=== PATIENT | male | born 1945 | race Caucasian/White ===

== ENCOUNTER 2017-09-25 10:05 | Emergency (ER) | payer MEDICARE, OTHER ==
[~2017-09-25] VITALS: Ht 177.8 cm; Wt 83.9 kg
[~2017-09-25 10:05] MED LIST: ACYCLOVIR 200200 MG PO; ACYCLOVIR 800800 MG PO; ADULT LOW DOSE81 MG PO; AEROCHAMBER PL1 EACH MC; ALLOPURINOL 30300 M1 PO; ALLOPURINOL PO; ARICEPT 5 MG TAB5 MG PO; ATORVASTATIN CA40 MG PO; CARVEDILOL12.5 MG; CLONAZEPAM 1 MG1 M1 PO; COREG6.25 MG PO; CRESTOR PO; CRESTOR5 MG; CYCLOBENZAPRINE10 MG; DESYREL50 MG; DESYREL50 MG PO; FEXOFENADINE H180 MG; FLOMAX0.4 MG PO; FLUOXETINE HCL40 MG PO; GLUCOPHAGE XR500 MG PO; GLUCOTROL5 MG PO; HYDROCODON-ACE1 EAC1 PO; HYDROCODONE; HYTRIN PO; INDOMETHACIN 5050 M1 PO; KEFLEX500 MG PO; LASIX 20 MG TAB20 MG PO; LISINOPRIL PO; LISINOPRIL40 MG; LORTAB 7.5/5001 TA3 PO; NEURONTIN600 MG PO; NORCO 5-325 TA1 EACH PO; OXYCODONE HCL 55 MG PO; PERCOCET 7.5-51 EACH PO; PREDNISONE 10 M10 MG PO; PREDNISONE 20 M20 MG PO; PROAIR HFA8.5 GM INH; PROZAC PO; ROBITUSSIN100 MG/53; SIMVASTATIN20 MG PO; TERAZOSIN; VENTOLIN HFA 1818 GM INH; ZPAK PO
[2017-09-25 10:46] LABS: ABSOLUTE BASOPHILS 0.1 thou/uL (0.0-0.2); ABSOLUTE EOSINOPHILS 0.2 thou/uL (0.0-0.7); ABSOLUTE LYMPHOCYTES 2.8 thou/uL (0.8-5.3); ABSOLUTE MONOCYTES 0.6 thou/uL (0.0-1.2); ABSOLUTE NEUTROPHILS 5.4 thou/uL (1.6-8.1); BASOPHILS 0.6 %; EOSINOPHILS 2.1 %; HEMATOCRIT 39.6 % (42.0-52.0); HEMOGLOBIN 13.2 gm/dL (14.0-18.0); LYMPHOCYTES 30.7 %; MCH 29.7 pg (26.0-34.0); MCHC 33.4 g/dL (28.0-37.0); MCV 88.9 fL (80.0-100.0); MONOCYTES 6.8 %; NUCLEATED RBCS 0 /100WBC; PLATELET COUNT* 340 thou/uL (150-400); POLYS 59.8 %; RBC 4.46 mil/uL (4.50-6.00); RDW-CV 14.1 % (10.5-14.5)
[2017-09-25 10:55] LABS: CALCIUM 8.8 mg/dL (8.5-10.1); CREATININE 0.8 mg/dL (0.6-1.3); POTASSIUM 3.5 mmol/L (3.5-5.1)
[2017-09-25 11:00] LABS: ALBUMIN 3.7 g/dL (3.4-5.0); TOTAL BILIRUBIN 0.5 mg/dL (<0.1-1.0); TOTAL PROTEIN 6.8 g/dL (6.4-8.2)
[2017-09-25] MEDS ORDERED: COLACE100 MG PO (11:57)
[2017-09-25 12:05] VITALS: BP 148/72
== END 2017-09-25 12:06 | disposition home or self-care (01) ==
LOC: M.ERS 10:05
PROVIDERS: Nurse Practitioner Family
DX: R10.9 Unspecified abdominal pain (principal); R11.0 Nausea; R14.0 Abdominal distension (gaseous); I10 Essential (primary) hypertension; E78.00 Pure hypercholesterolemia, unspecified; M19.90 Unspecified osteoarthritis, unspecified site; F10.99 Alcohol use, unspecified with unspecified alcohol-induced disorder; E11.9 Type 2 diabetes mellitus without complications; M54.30 Sciatica, unspecified side; Z87.891 Personal history of nicotine dependence; Z95.5 Presence of coronary angioplasty implant and graft

== ENCOUNTER 2017-09-27 09:39 | Emergency (ER) | payer MEDICARE, OTHER ==
[~2017-09-27] VITALS: Ht 177.8 cm; Wt 86.2 kg
[~2017-09-27 09:39] MED LIST changes: +COLACE100 MG PO
[2017-09-27 10:56] VITALS: BP 144/71
== END 2017-09-27 10:56 | disposition home or self-care (01) ==
LOC: M.ERS 09:39
DX: K59.00 Constipation, unspecified (principal); E78.00 Pure hypercholesterolemia, unspecified; M19.90 Unspecified osteoarthritis, unspecified site; Z95.5 Presence of coronary angioplasty implant and graft; Z87.891 Personal history of nicotine dependence

== ENCOUNTER 2018-08-27 01:09 | Inpatient (IN) | payer MEDICARE ==
[~2018-08-27] VITALS: Ht 177.8 cm; Wt 81.2 kg
[2018-08-27] VITALS (17 sets, daily range): BP systolic 86–154; BP diastolic 43–74
[~2018-08-27 01:09] MED LIST changes: -CARVEDILOL12.5 MG; +CARVEDILOL12.5 MG PO
[2018-08-27 01:41] LABS: HEMATOCRIT 36.4 % (42.0-52.0); HEMOGLOBIN 12.5 gm/dL (14.0-18.0); MCH 31.2 pg (26.0-34.0); MCHC 34.3 g/dL (28.0-37.0); MCV 90.9 fL (80.0-100.0); MPV 6.8 fl. (7.2-11.1); NUCLEATED RBCS 0 /100WBC; PLATELET COUNT* 298 thou/uL (150-400); RBC 4.01 mil/uL (4.50-6.00); RDW-CV 13.9 % (10.5-14.5); WBC 21.1 thou/uL (4.0-11.0)
[2018-08-27 01:54] LABS: URINE BILIRUBIN NEGATIVE (Negative); URINE BLOOD NEGATIVE (Negative); URINE CLARITY CLEAR; URINE COLOR YELLOW; URINE GLUCOSE-RANDOM 1+ (Negative); URINE KETONES NEGATIVE (Negative); URINE LEUKOCYTES-REFLEX NEGATIVE (Negative); URINE NITRITE-REFLEX NEGATIVE (Negative); URINE PROTEIN NEGATIVE (Negative); URINE SPECIFIC GRAVITY 1.015 (1.005-1.030); URINE UROBILINOGEN 0.2 E.U./dl (0.2-1.0)
[2018-08-27 02:07] LABS: CALCIUM 8.3 mg/dL (8.5-10.1); CREATININE 0.8 mg/dL (0.6-1.3)
[2018-08-27 02:12] LABS: ALBUMIN 2.9 g/dL (3.4-5.0); TOTAL BILIRUBIN 0.5 mg/dL (<0.1-1.0); TOTAL PROTEIN 6.1 g/dL (6.4-8.2)
--- NOTE | 2018-08-27 02:26 | NUR ---
PATIENT YELLING AT NURSES AND DR BRASHER STATING HE NEEDS TO HAVE A BOWEL MOVEMENT AND "WE ARE NOT DOING ANYTHING' PATIENT NOTIFIED HE NEEDS A N X RAY BEFORE WE CAN ATTEMPT TO HELP HIM HAVE A BOWELL MOVEMENT. PATIENT WAS GIVEN IV PAIN MEDICATIONS ON ARRIVAL TO ED. A BELLO CATHETER WAS PLACED PATIENT CONTINUALLY SHOUTING AT STAFF.RHONDA BRASHER HAS TALKED TO PATIENT AT BEDSIDE SEVERAL TIMES.
[2018-08-27 04:22] LABS: ABSOLUTE LYMPHOCYTES 1.7 thou/uL (0.8-5.3); ABSOLUTE MONOCYTES 0.6 thou/uL (0.0-1.2); ABSOLUTE NEUTROPHILS 18.8 thou/uL (1.6-8.1); PLATELET ESTIMATE ADEQUATE
--- NOTE | 2018-08-27 05:33 | NUR ---
PT ADMITTED TO ROOM 230 FROM ER. PT AAOX4 RESP REG AND UNALBORED SKIN W/D AND NO ACUTE DISTRESS NOTED. PT ORIENTED TO ROOM, CALL SYSTEM AND BED /TV CONTROLS. PT VERBALIZED GOOD UNDERSTANDING. VSS AND NO ACUTE CHANGES DURING SHIFT. PT STATED HIS ABDOMEN HAS HURT FOR SEVERAL DAYS AND HE JUST NEEDS TO HAVE A GOOD BOWEL MOVWMENT. PT INSTRUCTED HE WAS NPO AND VOICED UNDERSTANDING. BELLO INTACT AND PATENT DRAINING CLEAR YELLOW URINE. FRAUD INVESTIGATOR APPLIED AND ALARMS SET. WILL CONTINUE OT MONITOR
--- NOTE | 2018-08-27 09:41 | NUR ---
ASSUMED CARE OF PT THIS AM AROUND 0715- COMMERCIAL MANAGEMENT ACCOUNTANT IN PLACE ORDERED, TRACING SR- UPON ASSESSMENT PT NOTED TO BE RESTING IN BED- PT A&O X4, [place] AND NOTED TO BE VERY IRRITABLE THIS AM-FELLS LIKE NOBODY IS TAKING CARE OF THE REASON HE CAME IN R/T CONSTIPATION- SURGERY HERE THIS AM AND WELL TO EXPLAIN PLANS, BUT PT CONTINUES TO BE GRUMPY AND NON-PLEASENT WITH STAFF- CONTINENT OF BOWEL, BELLO IN PLACE D/D CLEAR YELLOW URINE R/T RETENTION- WHEEZING NOTED, RESP EVEN AND UN-LABORED- VSS, O2 SAT 97% ON RA-ABDOMEN SOFT/ROUND/TENDER, BS X4 QUADS- LAST BM REPORTED 08/25/18- IV NOTED TO LEFT FA INTACT, IVF INFUSSING PRESCIBED- CT GUIDED DRAIN PLACEMENT R/T ABCESS PLANNED AROUND 1300 THIS SHIFT- PT ABLE TO HAVE CLEAR LIQUIDS THIS AM, THEN NPO FOR LUNCH- SCHEDULED COLACE AND PRN MIRALAX GIVEN THIS AM R/T CONSTIPATION- PT RATES PAIN 04/27 TO ABD, BUT REFUSSES PAIN MEDS AT THIS TIME- CALL LIGHT AND PERSONAL BELONGINGS WITH IN REACH- HOURLY ROUNDS IN PLACE R/T SAFETY/NEEDS- ALL NEEDS MET AT THIS TIME-WCTM
[2018-08-27 09:51] LABS: APTT 29.5 Seconds (25.0-31.3)
--- NOTE | 2018-08-27 18:28 | NUR ---
PT BACK FROM DRAIN PLACEMENT @ 8105.VSS.MED-SURG STATUS.RIGHT GLUTEAL DRAIN SECURE AND PATENT.BELLO SECURE AND PATENT.IV PATENT WITH IVF INFUSING PER ORDERS.PT REQUESTING TO HAVE FAST ACTING STOOL SOFTNER-MESSAGE SENT TO DOCTOR.PT TO TRANSFER TO MED-SURG UNIT.REPORT CALLED TO THIEN ON MED-SURG UNIT.ALL PERSONAL BELONGINGS PACKED AND TAKEN WITH PT.PT TRANSPORTED BY BED TO MED-SURG UNIT.
[2018-08-28 04:26] LABS: HEMATOCRIT 35.7 % (42.0-52.0); HEMOGLOBIN 12.1 gm/dL (14.0-18.0); MCH 31.5 pg (26.0-34.0); MCV 92.7 fL (80.0-100.0); MPV 7.2 fl. (7.2-11.1); RBC 3.85 mil/uL (4.50-6.00); RDW-CV 14.6 % (10.5-14.5); WBC 14.4 thou/uL (4.0-11.0)
[2018-08-28 04:50] LABS: ALBUMIN 2.5 g/dL (3.4-5.0); CALCIUM 8.5 mg/dL (8.5-10.1); CREATININE 0.9 mg/dL (0.6-1.3); MAGNESIUM 1.6 mg/dL (1.8-2.4); PHOSPHORUS* 3.6 mg/dL (2.5-4.9); POTASSIUM 4.4 mmol/L (3.5-5.1); TOTAL BILIRUBIN 0.4 mg/dL (<0.1-1.0); TOTAL PROTEIN 4.9 g/dL (6.4-8.2)
--- NOTE | 2018-08-28 05:32 | NUR ---
PT SLEPT ON AND OFF THIS SHIFT. ASSESSMENT DOCUMENTED. MEDS GIVEN PER E-NOV. IV PATENT, FLUIDS INFUSING. NO REPORTS OF PAIN THIS SHIFT. PT DID HAVE SEVERAL LOOSE STOOLS THIS SHIFT. PT CONFUSED AT TIMES THIS SHIFT. BELLO IN PLACE DRAINING DEPENDENTLY. DRAIN ON RIGHT BUTTOCK IN PLACE WITH CLEAR YELLOW DRAINAGE. MODERATE AMOUNT OF DRAINAGE ON GAUZE AT INSERTION SITE. DRAIN FLUSHED WITH 5ML. WILL CONTINUE WITH PLAN OF CARE.
[2018-08-28 07:45] VITALS: BP 152/63
--- NOTE | 2018-08-28 11:30 | NUR ---
SW met with pt to complete initial assessment, introduce self, and SW role. Pt sister and pt brother visiting with pt. Pt alert, oriented, talkative. Pt lives alone and has siblings, friends, neighbors for support system. Pt does not have history of HH services or SNF. Pt expressed interest in DPOA and SW provided information, pt appointed his brother Juvenal as DPOA and signed, SW signed and notorized, two witnesses, and copies made, one placed in pt chart and others and original with pt. Pt does not have any DME, pt is walking without device, independent with mobility and ADLs. SW to continue to follow to assist with safe dc planning.
[2018-08-28 17:13] VITALS: BP 142/74
--- NOTE | 2018-08-28 17:31 | NUR ---
PATIENT A&OX4, ROOM AIR, IV LEFT FOREARM FLUIDS INFUSSING. UP STAND BY, STEADY GIAT. NO C/O PAIN/N/V. BELLO CATHETER, EDWINA IN COLOR, GOOD OUTPUT. DRAIN TO RIGHT BUTTOCK, MINIMAL OUTPUT. MAGNESIUM REPLACED TODAY. NO OTHER CONCERNS AT THIS TIME. APPROPRIATE AND COOPORATIVE WITH CARE.
[2018-08-28 20:01] VITALS: BP 144/66
--- NOTE | 2018-08-29 04:18 | NUR ---
ASSUMED PT CARE AT 1930. NURSING ASSESSMENT COMPLETED AT START OF SHIFT. PT VOICED NO CONCERNS. IV FLUIDS INFUSING. PT SLOWLY PROGRESSING TOWARDS GOALS. CALL LIGHT WITHIN REACH. FALL PRECAUTIONS IN PLACE.
[2018-08-29 04:54] LABS: HEMATOCRIT 36.2 % (42.0-52.0); HEMOGLOBIN 12.5 gm/dL (14.0-18.0); MCH 31.8 pg (26.0-34.0); MCHC 34.4 g/dL (28.0-37.0); MCV 92.3 fL (80.0-100.0); MPV 7.1 fl. (7.2-11.1); RBC 3.92 mil/uL (4.50-6.00); RDW-CV 14.2 % (10.5-14.5); WBC 12.7 thou/uL (4.0-11.0)
[2018-08-29 05:33] LABS: CALCIUM 8.9 mg/dL (8.5-10.1); MAGNESIUM 1.5 mg/dL (1.8-2.4); PHOSPHORUS* 3.6 mg/dL (2.5-4.9)
[2018-08-29 08:00] VITALS: BP 155/75
--- NOTE | 2018-08-29 08:04 | CON ---
[address] [address] CONSULTATION Name: ANDRY SCHUSTER III Room: [address] IN .R.#: [id number] Admission: 08/27/18 Attend Phys: Sue Jaimes MD Discharge: Date of : 47 Report #: [id number] THIS REPORT FOR: //name// CC: Warren Jaimes DATE OF SERVICE: 08/28/2018 ATTENDING PHYSICIAN: Dr. Jaimes. REASON FOR EVALUATION: Perforated diverticulitis, complicated by abscess. HISTORY OF PRESENT ILLNESS: Chart reviewed, the patient examined. This is a 72-year-old gentleman with history of hypertension, apparently constipation as well who was noted to be recently constipated over the course of the last several days and unable to urinate, described fullness and pressure associated with the lower abdomen. Due to concerns, he was evaluated in the Emergency Room. Imaging suggested findings consistent with perforated diverticulitis of the distal sigmoid colon with abscess formation measuring 5 x 7 x 3.6 cm anterior to the rectum, and did undergo a percutaneous drainage placement. Cultures are pending and the drain remains in place. He has been started empirically on piperacillin/tazobactam as well as metronidazole. He is not overtly toxic at this point. Denies any pulmonary related complaints. Appetite has been satisfactory. ALLERGIES: None known. MEDICATIONS: Include enoxaparin, Flagyl, gabapentin, pantoprazole, nicotine patch, carvedilol, fluoxetine, tamsulosin, Zosyn 3.375 IV q.8 hours, p.r.n. analgesics and antiemetics. PAST MEDICAL HISTORY: As described above, hypertension, high cholesterol, arthritis, spinal stenosis, borderline diabetes mellitus, has known atherosclerotic coronary artery disease with previous stenting, history of sciatica. SOCIAL HISTORY: Smoked cigarettes over the course of the last 40 years, occasional ethanol, no illicit drug use. FAMILY HISTORY: Unremarkable. REVIEW OF SYSTEMS: A 10-point review of systems is otherwise unrevealing with exception noted above in history of present illness. PHYSICAL EXAMINATION: GENERAL: He is alert, cooperative. He is in mild [place] [address] CONSULTATION Name: ANDRY SCHUSTER Moose LUTZ Room: [address]#: [id number] Admission: 08/27/18 Attend Phys: Sue Jaimes MD Discharge: Date of : 47 Report #: [id number] relatively well nourished. VITAL SIGNS: Temperature 98.2, pulse 66, respirations 20, blood pressure 152/63. SKIN: Warm, dry, no rashes. HEENT: Extraocular muscles intact. No oral lesions. NECK: Supple. LUNGS: Somewhat diminished, otherwise clear breath sounds. HEART: Regular. I do not appreciate a murmur. ABDOMEN: Soft. Really nontender at this point. BACK: Right flank, there is a percutaneous drainage catheter. There is no evidence of cellulitis noted. GENITOURINARY: Deferred. RECTAL: Deferred. LABORATORY DATA: Blood cultures sterile thus far. Most recent electrolytes: Sodium 136, potassium 4.4, chloride 101, bicarbonate is 28, BUN and creatinine 12 and 0.9. LFTs unremarkable. Albumin of 2.5, total protein is only 4.9, estimated GFR of 83. CBC: White count of 14.4, H and H 12.1 and 35.7, platelets of 288. CT abscess drainage transcribed report, CT of the abdomen and pelvis noted above. Urinalysis unremarkable. ASSESSMENT: Diverticulitis complicated by perforation with abscess, underwent percutaneous drainage. We will continue empiric antimicrobial therapy, presumed polymicrobial etiology, fecal related makenna. We will await those results. Noted plans of followup CT some time in the next few days to evaluate whether drain can be removed and will likely transition to oral antibiotics prior to discharge. Monitor expectantly including in terms of other potential complications while in the hospital. <ELECTRONICALLY SIGNED> By: Michoacano Quintana MD 08/29/18 0804 1104 1221Joana laura Quintana MD /nt
[2018-08-29 16:00] VITALS: BP 130/59
--- NOTE | 2018-08-29 17:10 | NUR ---
PT. DECLINED O.T. EVAL DUE TO BEING INDEPENDENT WITH ADLS ALREADY. PT. HAS ALREADY BEEN DISCHARGED FROM P.T. DUE TO BEING AN INDEPENDENT AMBULATOR OVER 300'. THUS, PT. WILL BE DISCHARGED FROM O.T. [place].
--- NOTE | 2018-08-29 17:49 | NUR ---
PATIENT RESTING IN BED. PATIENT IS UP WITH ASSIST. PATIENT DENIES ANY PAIN. PATIENT SEEN BY PHYSICAL AND OCCUPATIONAL THERAPIES. PATIENT HAS RIGHT BUTTOCK DRAIN WITH SMALL AMOUNT OF OUTPUT. BELLO CATHETER WITH YELLOW URINE. PATIENT DENIES ANY NEEDS AT THIS TIME. CALL LIGHT WITHIN REACH. WILL CONTINUE TO MONITOR.
[2018-08-29 19:30] VITALS: BP 159/68
[2018-08-30 04:18] LABS: HEMATOCRIT 37.1 % (42.0-52.0); HEMOGLOBIN 12.3 gm/dL (14.0-18.0); MCH 30.7 pg (26.0-34.0); MCHC 33.3 g/dL (28.0-37.0); MCV 92.4 fL (80.0-100.0); RBC 4.02 mil/uL (4.50-6.00); WBC 12.4 thou/uL (4.0-11.0)
[2018-08-30 04:53] LABS: ALBUMIN 2.8 g/dL (3.4-5.0); CALCIUM 8.8 mg/dL (8.5-10.1); CREATININE 0.9 mg/dL (0.6-1.3); MAGNESIUM 1.7 mg/dL (1.8-2.4); POTASSIUM 4.3 mmol/L (3.5-5.1); TOTAL BILIRUBIN 0.3 mg/dL (<0.1-1.0); TOTAL PROTEIN 5.5 g/dL (6.4-8.2)
--- NOTE | 2018-08-30 05:53 | NUR ---
VITALS WNL. SEE MAR. SEE CHARTING. HOURLY ROUNDING FOR SAFETY.
[2018-08-30 07:50] VITALS: BP 209/99
[2018-08-30 10:45] VITALS: BP 159/77
[2018-08-30 15:46] VITALS: BP 169/81
--- NOTE | 2018-08-30 16:58 | NUR ---
PATIENT RESTING IN BED. PATIENT IS UP AD KENDALL IN ROOM AND HAS WALKED IN HALLS TODAY. PATIENT HAD CT THIS AFTERNOON WITHOUT INCIDENT. PATIENT HAS GOOD APPETITE. PATIENT DENIES ANY PAIN. DRAIN TO RIGHT BUTTOCK IN PLACE DRAINING SMALL AMOUNT OF PURULENT FLUID. PATIENT HAD LOOSE BOWEL MOVEMENT TODAY. PATIENT DENIES ANY NEEDS AT THIS TIME. CALL LIGHT WITHIN REACH. WILL CONTINUE TO MONITOR.
[2018-08-30 20:00] VITALS: BP 157/82
[2018-08-31 04:27] LABS: HEMATOCRIT 35.4 % (42.0-52.0); HEMOGLOBIN 12.1 gm/dL (14.0-18.0); MCH 31.5 pg (26.0-34.0); MCHC 34.1 g/dL (28.0-37.0); MCV 92.5 fL (80.0-100.0); MPV 7.1 fl. (7.2-11.1); RBC 3.83 mil/uL (4.50-6.00); RDW-CV 14.2 % (10.5-14.5); WBC 9.4 thou/uL (4.0-11.0)
--- NOTE | 2018-08-31 04:29 | NUR ---
ASSESSMENT: PT REMAIN ALERT ANO ORIENT TIMES FOUR, CNAN GET FORGETFUL TO SITUATION AND PLACE. VSS AFEBRILE. BLOOD SUGAR WAS 85, JUICE, SNACKS WAS GIVEN WITH AN [place] READING OF > 200. LEFT BILIARY DRAIN DRT ADN. SLOW PROGRESS, WILL CONTINUE TO MONITOR.
[2018-08-31 04:35] LABS: CALCIUM 8.8 mg/dL (8.5-10.1); MAGNESIUM 1.3 mg/dL (1.8-2.4); PHOSPHORUS* 3.2 mg/dL (2.5-4.9); POTASSIUM 3.6 mmol/L (3.5-5.1)
[2018-08-31 08:00] VITALS: BP 122/56
[2018-08-31 16:35] VITALS: BP 177/81
--- NOTE | 2018-08-31 16:35 | NUR ---
PATIENT A&OX4, FORGETFUL AT TIMES. ROOM AIR, NEW IV RIGHT FOREARM FLUIDS INFUSSING. UP AD KENDALL, STEADY GAIT. NO C/O PAIN/N/V. COLLECTION BAG TO RIGHT BUTTOCK, MINIMAL PURRELENT DRAINAGE. BELLO CATHETER PULLED YESTERDAY, VOIDING WELL ON OWN. NO OTHER CONCERNS AT THIS TIME. APPROPRIATE AND COOPORATIVE WITH CARE.
[2018-09-01] VITALS: BP 151/68
--- NOTE | 2018-09-01 07:19 | NUR ---
PATIENT SLEPT PART OF THE NIGHT. IV REMAINS SALINE LOCKED. PATIENT IS SUPPOSED TO BE GOING HOME TODAY. WILL CONTINUE TO MONITOR.
[2018-09-01 08:00] VITALS: BP 188/104
[2018-09-01 08:53] VITALS: BP 188/104
[2018-09-01] MEDS ORDERED: AUGMENTIN 875-1 EACH PO (11:53)
--- NOTE | 2018-09-01 11:58 | NUR ---
PATIENT A&OX4, FORGETFUL AT TIMES. ROOM AIR. IV RIGHT FOREARM SALINE LOCK. UP AD KENDALL, STEADY GAIT. NO C/O PIAN/N/V. PATIENT TO BE DISCHARGED TODAY. WHILE NURSE WAS WORKING ON DISCHARGE PATIENT WAS TRYING TO GET ON ELEVATOR TO LEAVE WITH IV STILL IN ARM. WAS TOLD THAT IT WOULD BE 10-15 MIN TO COMPLETE. PATIENT STATES "I'M NOT GOING TO WAIT. MY RIDE IS HERE RIGHT NOW, AND I'M LEAVING." PATIENT THEN ASKED TO SIGN AMA PAPERS, DID SIGN WITH UNDERSTANDING OF PRECAUSTIONS. PRESCRIPTIONS WERE GIVEN. PATIENT DIDN'T WANT TO STAY TO LISTEN TO EDUCATION. IV WAS DISCONTINUED PRIOR TO PATIENT LEAVING. PATIENT LEFT AT 1158.
--- NOTE | 2018-09-04 14:49 | CON ---
[address] [address] CONSULTATION Name: ANDRY SCHUSTER III Room: [address] IN .R.#: [id number] Admission: 08/27/18 Attend Phys: Sue Jaimes MD Discharge: 09/01/18 Date of : 47 Report #: [id number] THIS REPORT FOR: //name// CC: Warren Jaimes DATE OF SERVICE: 08/27/2018 HISTORY OF PRESENT ILLNESS: This is a 72-year-old male patient who was admitted with a stomach problem. Neurology consultation is being requested because the patient apparently had a stroke about a week ago. He was admitted to [facility] at that time. He was seen by Dr. Cheryl Peck, a neurologist there. Apparently, they did workup on him and told him that he had a stroke. They put him on aspirin and statin. Symptoms are not very clear. He indicates his left eye was not working very well. He said it was not tracking very well. His symptoms have not changed. He has not seen an demolition crane operator. [facility] It is not clear if he saw any demolition crane operator at [facility] or not. REVIEW OF SYSTEMS: Positive for abdominal pain, for which he was admitted. He was earlier agitated and he is better now. He does have a history of hypertension, diverticular abscess, nausea. He indicated he is a type 2 diabetic. He has multiple scratches on his body. He is on fluoxetine. It is not clear why he is on that. He does not know whether the memory got affected with his stroke or not. He does have a history of constipation and he still thinks he can see with the left eye, does not have any ENT, cardiac, respiratory symptom associated with present symptomatology. Denies any bladder, musculoskeletal, constitutional symptom. He does have scratches on his lower extremities. He does not have any hematological, throat, allergic symptom. PAST MEDICAL HISTORY: Negative for any stroke except what he says happened about 1 week ago. FAMILY HISTORY: Negative for any early age stroke. SOCIAL HISTORY: He does drink alcohol. The quantity is not clear. PHYSICAL EXAMINATION: Indicate he is alert. He could tell me what month and year it is, but could not tell me what day it is. He could not tell me what hospital he is in, but his speech looks intact. He was able to name the president. It is not clear what his baseline memory and fund of knowledge is. Cranial nerve examination 2-12 mostly looks unremarkable. He can see with the left eye. His pupils are pretty small, but I do not know the reason for that. He moves all four extremities. His reflexes are diminished on both sides, but he is a diabetic. His position sense is intact. His tone and strength looks preserved on both sides. He does not have any cerebellar [place] [address] CONSULTATION Name: ANDRY SCHUSTER III Room: [address]#: [id number] Admission: 08/27/18 Attend Phys: Sue Jaimes MD Discharge: 09/01/18 Date of : 47 Report #: [id number] small pupil, I could not look at his fundus. He has no meningeal sign. There is no carotid bruit. He is moderately built individual who does not have any dysmorphic features of eyes, ears and face. His visions and hearing looks adequate. His pulses are difficult to feel. He has no edema, cyanosis or jaundice. Cardiac examinations appear unremarkable. No respiratory difficulty or rhonchi was noticed on either side. Blood pressure is 107/59, respiratory rate is 18, pulse is 69, temperature is 97.2. LABORATORY DATA: White count is 21.1. Sodium is 124. Even in 2016, his sodium was 119. IMPRESSION: This patient has a history of stroke about a week ago. He apparently already has all the workup done there. In spite of repeating the workup, I will just try to get the workup from [facility] and look at it. He needs to follow up with the neurologist there. He did have some altered mental status and part of it may be alcohol and part of it may be hyponatremia. His memory does look poor, but that may be because of hyponatremia also. I will send a TSH and vitamin B12. I will follow up this patient tomorrow. Hopefully, we will have the records from [facility] and we will decide if we need to do any further workup here or not. Thank you very much for this referral. <ELECTRONICALLY SIGNED> By: Jamie Ames MD 09/04/18 1449 1721 0214Phanna Ames MD /nt
== END 2018-09-01 11:58 | disposition left against medical advice (07) | DRG 871 ==
LOC: M.ERS 01:09 → M.2W 03:33 → M.TBA-ER 03:33 → M.3W 03:33 → M.2W 03:57 → M.3W 18:47
PROVIDERS: Emergency Medicine; Family Medicine; Radiology Diagnostic Radiology; Surgery; ADMIT Internal Medicine
PROC: 0W9J30Z Drainage of Pelvic Cavity with Drainage Device, Percutaneous Approach (ICD-10-PCS; principal; 2018-08-27)
DX: A41.9 Sepsis, unspecified organism (principal); G92 Toxic encephalopathy; E43 Unspecified severe protein-calorie malnutrition; K57.20 Diverticulitis of large intestine with perforation and abscess without bleeding; E87.1 Hypo-osmolality and hyponatremia; I10 Essential (primary) hypertension; E78.00 Pure hypercholesterolemia, unspecified; M19.90 Unspecified osteoarthritis, unspecified site; I25.10 Atherosclerotic heart disease of native coronary artery without angina pectoris; E83.42 Hypomagnesemia; E11.649 Type 2 diabetes mellitus with hypoglycemia without coma; M48.00 Spinal stenosis, site unspecified; F32.9 Major depressive disorder, single episode, unspecified; F12.10 Cannabis abuse, uncomplicated; E11.40 Type 2 diabetes mellitus with diabetic neuropathy, unspecified; F17.210 Nicotine dependence, cigarettes, uncomplicated; N40.0 Benign prostatic hyperplasia without lower urinary tract symptoms; Z86.73 Personal history of transient ischemic attack (TIA), and cerebral infarction without residual deficits; Z68.25 Body mass index [BMI] 25.0-25.9, adult; Z95.5 Presence of coronary angioplasty implant and graft; Z79.84 Long term (current) use of oral hypoglycemic drugs; Z79.899 Other long term (current) drug therapy

== ENCOUNTER 2019-05-10 13:12 | Inpatient (IN) | payer OTHER ==
[~2019-05-10] VITALS: Ht 177.8 cm; Wt 89.6 kg
[~2019-05-10 13:12] MED LIST changes: +AUGMENTIN 875-1 EACH PO
[2019-05-10 13:13] VITALS: BP 105/50
[2019-05-10] MEDS ORDERED: DONEPEZIL HCL10 M1 PO (13:21)
[2019-05-10 14:00] LABS: ABSOLUTE BASOPHILS 0.1 thou/uL (0.0-0.2); ABSOLUTE EOSINOPHILS 0.2 thou/uL (0.0-0.7); ABSOLUTE LYMPHOCYTES 1.1 thou/uL (0.8-5.3); ABSOLUTE MONOCYTES 0.4 thou/uL (0.0-1.2); ABSOLUTE NEUTROPHILS 5.1 thou/uL (1.6-8.1); BASOPHILS 1.1 %; EOSINOPHILS 2.8 %; HEMATOCRIT 39.7 % (42.0-52.0); HEMOGLOBIN 13.4 gm/dL (14.0-18.0); LYMPHOCYTES 15.9 %; MCH 31.7 pg (26.0-34.0); MCHC 33.8 g/dL (28.0-37.0); MCV 93.7 fL (80.0-100.0); MONOCYTES 6.4 %; MPV 7.1 fl. (7.2-11.1); NUCLEATED RBCS 0 /100WBC; PLATELET COUNT* 237 thou/uL (150-400); POLYS 73.8 %; RBC 4.23 mil/uL (4.50-6.00); RDW-CV 13.7 % (10.5-14.5); WBC 6.9 thou/uL (4.0-11.0)
[2019-05-10 14:05] LABS: ANION GAP 10 mmol/L (7-16); BUN 19 mg/dL (7-18); CALCIUM 8.3 mg/dL (8.5-10.1); CHLORIDE 102 mmol/L (98-107); CO2 26 mmol/L (21-32); CREATININE 1.5 mg/dL (0.6-1.3); GLUCOSE 278 mg/dL (70-99); SODIUM 138 mmol/L (136-145)
[2019-05-10 14:14] LABS: ALBUMIN 3.1 g/dL (3.4-5.0); ALKALINE PHOSPHATASE 107 U/L (46-116); LIPASE 164 U/L (73-393); SGOT 11 U/L (15-37); SGPT 18 U/L (30-65); TOTAL BILIRUBIN 0.3 mg/dL (<0.1-1.0); TOTAL PROTEIN 5.8 g/dL (6.4-8.2); TROPONIN-I LEVEL <0.06 ng/mL (<0.06)
[2019-05-10 15:59] VITALS: BP 150/57
[2019-05-10 16:15] VITALS: BP 168/68
[2019-05-10 20:00] VITALS: BP 164/72
--- NOTE | 2019-05-10 20:15 | EKG ---
[place] [address] ELECTROCARDIOGRAM REPORT Name: ANDRY SCHUSTER III Room: [address] ADM IN .R.#: [id number] Admission: 05/10/19 Attend Phys: Linnette Weller MD Discharge: Date of : 47 Report #: [id number] THIS REPORT FOR: //name// [facility] ED Test Date: 2019-05-10 Test Time: 13:38:33 Pat Name: ANDRY VIGILEDISON Department: Room: [facility] Gender: M Vehicle Cost Engineer: ISADORA : 1945 Requested By: Adalberto Leija Order Number: [id number] MD: Kris Anderson Measurements Intervals [place] Rate: 53 P: 48 CT: 151 QRS: -81 QRSD: 102 T: 8 QT: 457 QTc: 430 Interpretive Statements Sinus rhythm Left anterior fascicular block Borderline T wave abnormalities Compared to ECG 05/05/2016 03:52:27 T-wave abnormality now present Incomplete right bundle-branch block no longer present Right bundle-branch block no longer present Electronically Signed On 05-10-2019 20:15:09 CDT by Kris Anderson [email or web address] <ELECTRONICALLY SIGNED> By: Gely Anderson MD, [facility] 05/10/192014 1338 Gely Anderson MD, [facility] /EPI
[2019-05-10] MEDS ORDERED: NEURONTIN600 MG PO (21:00)
[2019-05-10 21:40] LABS: URINE BILIRUBIN NEGATIVE (Negative); URINE BLOOD 1+ (Negative); URINE CLARITY CLEAR; URINE COLOR YELLOW; URINE GLUCOSE-RANDOM NEGATIVE (Negative); URINE KETONES TRACE (Negative); URINE LEUKOCYTES-REFLEX NEGATIVE (Negative); URINE NITRITE-REFLEX NEGATIVE (Negative); URINE PROTEIN NEGATIVE (Negative); URINE UROBILINOGEN 0.2 E.U./dl (0.2-1.0)
[2019-05-10 21:55] LABS: CASTS None Seen /LPF (None Seen); CRYSTALS None Seen /LPF (None Seen); MUCUS None Seen strn/LPF (None Seen); SQUAMOUS 0-3 Few /LPF (0-3)
[2019-05-10 21:56] LABS: BACTERIA-REFLEX None Seen /HPF (None Seen); URINE RBC 0-2 Rare /HPF (0-2); URINE WBC-REFLEX None Seen /HPF (0-5)
[2019-05-10 22:40] LABS: AMP/METHAMP Negative (Negative); BARBITURATES Negative (Negative); BENZODIAZEPINES Negative (Negative); COCAINE Negative (Negative); METHADONE Negative (Negative); OPIATES Negative (Negative); PCP Negative (Negative); THC POSITIVE (Negative)
[2019-05-11] VITALS: BP 172/63
[2019-05-11 04:00] VITALS: BP 167/83
[2019-05-11 05:06] LABS: ABSOLUTE BASOPHILS 0.1 thou/uL (0.0-0.2); ABSOLUTE EOSINOPHILS 0.3 thou/uL (0.0-0.7); ABSOLUTE LYMPHOCYTES 1.7 thou/uL (0.8-5.3); ABSOLUTE MONOCYTES 0.6 thou/uL (0.0-1.2); ABSOLUTE NEUTROPHILS 5.3 thou/uL (1.6-8.1); BASOPHILS 0.7 %; EOSINOPHILS 3.6 %; HEMATOCRIT 41.6 % (42.0-52.0); HEMOGLOBIN 13.8 gm/dL (14.0-18.0); LYMPHOCYTES 21.1 %; MCH 31.3 pg (26.0-34.0); MCHC 33.1 g/dL (28.0-37.0); MCV 94.6 fL (80.0-100.0); MONOCYTES 7.2 %; MPV 7.8 fl. (7.2-11.1); NUCLEATED RBCS 0 /100WBC; PLATELET COUNT* 222 thou/uL (150-400); POLYS 67.4 %; RDW-CV 13.9 % (10.5-14.5); WBC 7.9 thou/uL (4.0-11.0)
[2019-05-11 05:10] LABS: ANION GAP 7 mmol/L (7-16); BUN 13 mg/dL (7-18); CALCIUM 8.6 mg/dL (8.5-10.1); CHLORIDE 103 mmol/L (98-107); CHOLESTEROL 164 mg/dL (<200); CO2 27 mmol/L (21-32); CREATININE 0.8 mg/dL (0.6-1.3); GLUCOSE 171 mg/dL (70-99); HDL CHOLESTEROL 41 mg/dL (>40); LDL CHOLESTEROL 87 mg/dL (<100); MAGNESIUM 1.2 mg/dL (1.8-2.4); PHOSPHORUS* 2.7 mg/dL (2.5-4.9); POTASSIUM 3.5 mmol/L (3.5-5.1); SODIUM 137 mmol/L (136-145); TRIGLYCERIDE 183 mg/dL (<150); VLDL 37 mg/dL (<40)
[2019-05-11 05:21] LABS: SERUM ASSESSMENT CLEAR
[2019-05-11 07:01] VITALS: BP 182/73
--- NOTE | 2019-05-11 10:27 | NUR ---
ASSESSMENT COMPLETE. PT ALERT AND ORIENTED X4. PT GIVEN MORNING MEDICATIONS. PT REPORTS NON COMPLIANCE AT HOME WITH MEDICATIONS. BLOOD PRESSURE ELEVATED BEFORE MEDICATIONS THIS MORNING, PT SIGNED OUT AMA AT 1005. IV DC'D WITHOUT COMPLICATIONS. SEE ASSESSMENT AND VITALS FOR OTHER DETAILS
--- NOTE | 2019-05-11 14:28 | NUR ---
PT ORDERS RECEIVED 05/09/19, PT DISCHARGED AMA FROM FACILITY PRIOR TO COMPLETION OF PT EVALUATION AND INTERVENTIONS
[2019-05-12 05:37] LABS: GLYCOHEMOGLOBIN (HGB A1C) 7.5 % (4.8-5.6)
== END 2019-05-11 10:24 | disposition left against medical advice (07) | DRG 68 ==
LOC: M.ERS 13:12 → M.2W 14:44 → M.TBA-ER 14:44 → M.2W 16:41
PROVIDERS: Emergency Medicine Emergency Medical Services; ADMIT Family Medicine
DX: I65.21 Occlusion and stenosis of right carotid artery (principal); N17.9 Acute kidney failure, unspecified; E78.00 Pure hypercholesterolemia, unspecified; M19.90 Unspecified osteoarthritis, unspecified site; F12.90 Cannabis use, unspecified, uncomplicated; E11.22 Type 2 diabetes mellitus with diabetic chronic kidney disease; R55 Syncope and collapse; R00.1 Bradycardia, unspecified; E78.5 Hyperlipidemia, unspecified; M48.00 Spinal stenosis, site unspecified; I12.9 Hypertensive chronic kidney disease with stage 1 through stage 4 chronic kidney disease, or unspecified chronic kidney disease; N18.3 Chronic kidney disease, stage 3 (moderate); Z95.5 Presence of coronary angioplasty implant and graft; Z53.21 Procedure and treatment not carried out due to patient leaving prior to being seen by health care provider; Z87.891 Personal history of nicotine dependence; Z83.6 Family history of other diseases of the respiratory system; Z79.82 Long term (current) use of aspirin; Z79.899 Other long term (current) drug therapy; I48.0 Paroxysmal atrial fibrillation

== ENCOUNTER 2019-05-15 14:58 | Emergency (ER) | payer OTHER ==
[~2019-05-15] VITALS: Ht 177.8 cm; Wt 87.5 kg
[~2019-05-15 14:58] MED LIST changes: +DONEPEZIL HCL10 M1 PO
[2019-05-15 15:21] LABS: ABSOLUTE BASOPHILS 0.1 thou/uL (0.0-0.2); ABSOLUTE EOSINOPHILS 0.6 thou/uL (0.0-0.7); ABSOLUTE LYMPHOCYTES 1.8 thou/uL (0.8-5.3); ABSOLUTE MONOCYTES 0.7 thou/uL (0.0-1.2); ABSOLUTE NEUTROPHILS 6.5 thou/uL (1.6-8.1); BASOPHILS 1.2 %; EOSINOPHILS 5.7 %; HEMATOCRIT 39.6 % (42.0-52.0); HEMOGLOBIN 13.6 gm/dL (14.0-18.0); LYMPHOCYTES 18.6 %; MCH 32.3 pg (26.0-34.0); MCHC 34.3 g/dL (28.0-37.0); MONOCYTES 7.5 %; MPV 7.7 fl. (7.2-11.1); NUCLEATED RBCS 0 /100WBC; PLATELET COUNT* 256 thou/uL (150-400); RBC 4.21 mil/uL (4.50-6.00); RDW-CV 13.8 % (10.5-14.5); WBC 9.7 thou/uL (4.0-11.0)
[2019-05-15 15:28] LABS: ANION GAP 9 mmol/L (7-16); BUN 17 mg/dL (7-18); CALCIUM 8.5 mg/dL (8.5-10.1); CHLORIDE 99 mmol/L (98-107); CO2 27 mmol/L (21-32); CREATININE 1.1 mg/dL (0.6-1.3); GLUCOSE 292 mg/dL (70-99); POTASSIUM 4.9 mmol/L (3.5-5.1); SODIUM 135 mmol/L (136-145)
[2019-05-15 15:37] LABS: ALBUMIN 3.3 g/dL (3.4-5.0); ALKALINE PHOSPHATASE 121 U/L (46-116); SGPT 16 U/L (30-65); TOTAL BILIRUBIN 0.4 mg/dL (<0.1-1.0); TROPONIN-I LEVEL <0.06 ng/mL (<0.06)
[2019-05-15 16:05] LABS: SGOT 19 U/L (15-37); TOTAL PROTEIN 5.6 g/dL (6.4-8.2)
[2019-05-15 21:10] VITALS: BP 163/63
--- NOTE | 2019-05-16 15:49 | EKG ---
[place] [address] ELECTROCARDIOGRAM REPORT Name: ANDRY SCHUSTER III [id number] Admission: 05/15/19 Attend Phys: Discharge: 05/15/19 Date of : 47 Report #: [id number] THIS REPORT FOR: //name// [facility] ED Test Date: 2019-05-15 Test Time: 15:12:46 Pat Name: ANDRY SCHUSTER Department: Room: Gender: M Automobile Assembly Supervisor: EV : 1945 Requested By: Adalberto Leija Order Number: [id number] MD: Gume Alvarado Measurements Intervals [place] Rate: 70 P: -3 NC: 134 QRS: -74 QRSD: 98 T: 49 QT: 401 QTc: 433 Interpretive Statements Sinus rhythm Left anterior fascicular block Compared to ECG 05/10/2019 13:38:33 no change Electronically Signed On 05-16-2019 15:49:21 CDT by Gume Alvarado [email or web address] <ELECTRONICALLY SIGNED> By: Gume Alvarado MD, [facility] 05/16/19 1549 D: 08/1511 11 Gume Alvarado MD, FACC /EPI
== END 2019-05-15 21:10 | disposition short-term general hospital (02) ==
LOC: M.ERS 14:58
PROVIDERS: Emergency Medicine Emergency Medical Services
DX: R55 Syncope and collapse (principal); M19.90 Unspecified osteoarthritis, unspecified site; E78.00 Pure hypercholesterolemia, unspecified; I10 Essential (primary) hypertension; Z95.2 Presence of prosthetic heart valve; M48.00 Spinal stenosis, site unspecified; Z87.891 Personal history of nicotine dependence

== ENCOUNTER 2019-06-27 09:50 | Emergency (ER) | payer OTHER ==
[~2019-06-27] VITALS: Ht 177.8 cm; Wt 84.8 kg
[2019-06-27] MEDS ORDERED: AMLODIPINE BESY10 MG PO (09:56)
[2019-06-27 10:31] LABS: ABSOLUTE BASOPHILS 0.1 thou/uL (0.0-0.2); ABSOLUTE LYMPHOCYTES 1.4 thou/uL (0.8-5.3); ABSOLUTE MONOCYTES 0.7 thou/uL (0.0-1.2); ABSOLUTE NEUTROPHILS 6.6 thou/uL (1.6-8.1); BASOPHILS 1.2 %; EOSINOPHILS 9.8 %; HEMATOCRIT 42.1 % (42.0-52.0); HEMOGLOBIN 14.6 gm/dL (14.0-18.0); LYMPHOCYTES 14.5 %; MCH 31.3 pg (26.0-34.0); MCHC 34.8 g/dL (28.0-37.0); MCV 89.8 fL (80.0-100.0); MONOCYTES 6.8 %; MPV 6.8 fl. (7.2-11.1); NUCLEATED RBCS 0 /100WBC; PLATELET COUNT* 284 thou/uL (150-400); POLYS 67.7 %; RBC 4.69 mil/uL (4.50-6.00); RDW-CV 13.4 % (10.5-14.5); WBC 9.8 thou/uL (4.0-11.0)
[2019-06-27 10:42] LABS: INR 1.1; PROTIME 11.4 Seconds (9.20-11.50)
[2019-06-27 10:43] LABS: CALCIUM 9.5 mg/dL (8.5-10.1); CREATININE 0.9 mg/dL (0.6-1.3); POTASSIUM 4.2 mmol/L (3.5-5.1)
[2019-06-27 10:54] LABS: ALBUMIN 3.9 g/dL (3.4-5.0); TOTAL BILIRUBIN 0.4 mg/dL (<0.1-1.0)
[2019-06-27] MEDS ORDERED: AZITHROMYCIN 2250 MG PO (12:06)
[2019-06-27] MEDS ORDERED: MEDROLDOSEPACK PO (12:06)
[2019-06-27 12:12] VITALS: BP 158/80
--- NOTE | 2019-06-27 16:14 | EKG ---
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: : 1945 Requested By: Wilmer Pena Order Number: [id number] MD: Ruiz Huang Measurements Intervals [place] Rate: 72 P: 60 [place]: 146 QRS: -87 QRSD: 95 T: 63 QT: 389 QTc: 426 Interpretive Statements Sinus rhythm Left anterior fascicular block Consider right ventricular hypertrophy Compared to ECG 05/15/2019 15:12:46 No significant changes Electronically Signed On 06-27-2019 16:14:01 CDT by Ruiz Huang [email or web address] <ELECTRONICALLY SIGNED> By: Ruiz Huang MD, [facility] 06/27/19 1614 Ruiz Huang MD, FAC /EPI
== END 2019-06-27 12:11 | disposition left against medical advice (07) ==
LOC: M.ERS 09:50
PROVIDERS: Emergency Medicine
DX: J44.1 Chronic obstructive pulmonary disease with (acute) exacerbation (principal); I10 Essential (primary) hypertension; E78.5 Hyperlipidemia, unspecified; E78.00 Pure hypercholesterolemia, unspecified; M19.90 Unspecified osteoarthritis, unspecified site; Z95.2 Presence of prosthetic heart valve; Z87.891 Personal history of nicotine dependence

== ENCOUNTER 2019-07-20 16:57 | Emergency (ER) | payer OTHER ==
[~2019-07-20] VITALS: Ht 188 cm; Wt 90.0 kg
[2019-07-20 16:57] VITALS: BP 92/46
[~2019-07-20 16:57] MED LIST changes: +AMLODIPINE BESY10 MG PO; +AZITHROMYCIN 2250 MG PO; +MEDROLDOSEPACK PO
--- NOTE | 2019-07-20 16:58 | NUR ---
UPON FURTHER EVALUATION FROM DR. DOVER, CODE STROKE WAS ACTIVATED AT 9363.
[2019-07-20 17:21] LABS: BE 1.1 mmol/L (-2 to +3); PCO2 46.5 mmHg (35.0-45.0); PO2 60.1 mmHg (75.0-100.0); pH 7.378 (7.340-7.450)
[2019-07-20 17:28] LABS: ABSOLUTE BASOPHILS 0.1 thou/uL (0.0-0.2); ABSOLUTE EOSINOPHILS 0.7 thou/uL (0.0-0.7); ABSOLUTE LYMPHOCYTES 1.5 thou/uL (0.8-5.3); ABSOLUTE MONOCYTES 0.9 thou/uL (0.0-1.2); ABSOLUTE NEUTROPHILS 6.6 thou/uL (1.6-8.1); BASOPHILS 0.8 %; EOSINOPHILS 7.2 %; HEMATOCRIT 35.2 % (42.0-52.0); HEMOGLOBIN 12.1 gm/dL (14.0-18.0); LYMPHOCYTES 15.3 %; MCH 31.5 pg (26.0-34.0); MCHC 34.3 g/dL (28.0-37.0); MCV 91.9 fL (80.0-100.0); MPV 7.4 fl. (7.2-11.1); NUCLEATED RBCS 0 /100WBC; PLATELET COUNT* 221 thou/uL (150-400); POLYS 67.7 %; RBC 3.83 mil/uL (4.50-6.00); RDW-CV 13.7 % (10.5-14.5); WBC 9.7 thou/uL (4.0-11.0)
[2019-07-20 17:37] LABS: CALCIUM 8.3 mg/dL (8.5-10.1); CREATININE 1.8 mg/dL (0.6-1.3); POTASSIUM 4.2 mmol/L (3.5-5.1)
[2019-07-20 17:38] LABS: PROTIME 10.6 Seconds (9.20-11.50)
[2019-07-20 17:41] LABS: ALBUMIN 3.2 g/dL (3.4-5.0); MAGNESIUM 1.5 mg/dL (1.8-2.4); TOTAL BILIRUBIN 0.4 mg/dL (<0.1-1.0); TOTAL PROTEIN 6.1 g/dL (6.4-8.2)
--- NOTE | 2019-07-20 18:50 | NUR ---
PT STATES THAT THIS NURSE "CAN GIVE HIS LICENSE TO HIS FRIEND,ASHLEY". THIS NURSE GAVE ASHLEY THE PATIENT'S ID.
--- NOTE | 2019-07-20 21:03 | NUR ---
1999 PT STATES THAT HE WANTS TO LEAVE AMA AND HE HAS FAMILY TO TAKE CARE OF HIM AND WANT DR BRASHER TO TALK TO HIM, DISCUSSED DR BRASHER WILL TAALK TO PT
--- NOTE | 2019-07-20 21:04 | NUR ---
2014 DR BRASHER DISCUSSED BENEFITS AND RISKS WITH PTS, PT STILL WANTS TO LEAVE AMA
[2019-07-20 21:06] VITALS: BP 115/60
--- NOTE | 2019-07-21 14:32 | EKG ---
[place] [address] ELECTROCARDIOGRAM REPORT Name: ANDRY SCHUSTER III Room: [facility]#: [id number] Admission: 07/20/19 Attend Phys: Discharge: 07/20/19 Date of : 47 Report #: [id number] THIS REPORT FOR: //name// [facility] ED Test Date: 2019-07-20 Test Time: 17:07:47 Pat Name: ANDRY SCHUSTER Department: Room: [facility] Gender: M Manager Life: SUMA : 1945 Requested By: Melba Harrison Order Number: [id number] MD: Dony Cameron Measurements Intervals [place] Rate: 67 P: 41 [place]: 144 QRS: -90 QRSD: 103 T: 37 QT: 432 QTc: 456 Interpretive Statements Sinus rhythm Left anterior fascicular block Abnormal R-wave progression, late transition Compared to ECG 06/27/2019 09:55:15 No significant changes Electronically Signed On 07-21-2019 14:32:49 TRAINING ASSISTANT by Dony Cameron [email or web address] <ELECTRONICALLY SIGNED> By: Dony Cameron MD, FACC 07/21/19 1432 1707 1707 Dony Cameron MD, [facility] /EPI
== END 2019-07-20 21:10 | disposition left against medical advice (07) ==
LOC: M.ERS 16:57 → M.TBA-ER 18:40 → M.ERS 18:40
PROVIDERS: Personal Emergency Response Attendant
DX: R41.82 Altered mental status, unspecified (principal); T50.905A Adverse effect of unspecified drugs, medicaments and biological substances, initial encounter; R73.9 Hyperglycemia, unspecified; E78.00 Pure hypercholesterolemia, unspecified; M19.90 Unspecified osteoarthritis, unspecified site; M48.00 Spinal stenosis, site unspecified; F11.99 Opioid use, unspecified with unspecified opioid-induced disorder; Z95.5 Presence of coronary angioplasty implant and graft; Z87.891 Personal history of nicotine dependence; Y92.89 Other specified places as the place of occurrence of the external cause

== ENCOUNTER 2019-09-06 12:54 | Emergency (ER) | payer OTHER ==
[~2019-09-06] VITALS: Ht 180.3 cm; Wt 87.5 kg
[2019-09-06] MEDS ORDERED: PROZAC10 M1 PO (13:05)
[2019-09-06 13:29] LABS: BE -2.3 mmol/L (-2 to +3); PCO2 46.9 mmHg (35.0-45.0); pH 7.327 (7.340-7.450)
[2019-09-06 13:31] LABS: PO2 57.8 mmHg (75.0-100.0)
[2019-09-06 13:34] LABS: ABSOLUTE BASOPHILS 0.1 thou/uL (0.0-0.2); ABSOLUTE EOSINOPHILS 0.8 thou/uL (0.0-0.7); ABSOLUTE LYMPHOCYTES 1.4 thou/uL (0.8-5.3); ABSOLUTE MONOCYTES 0.6 thou/uL (0.0-1.2); BASOPHILS 1.3 %; EOSINOPHILS 9.8 %; HEMOGLOBIN 14.9 gm/dL (14.0-18.0); LYMPHOCYTES 18.2 %; MCH 30.4 pg (26.0-34.0); MCHC 33.8 g/dL (28.0-37.0); MCV 89.8 fL (80.0-100.0); MONOCYTES 7.8 %; NUCLEATED RBCS 0 /100WBC; PLATELET COUNT* 241 thou/uL (150-400); POLYS 62.9 %; RDW-CV 14.1 % (10.5-14.5); WBC 7.9 thou/uL (4.0-11.0)
[2019-09-06 13:46] LABS: CREATININE 1.3 mg/dL (0.6-1.3); POTASSIUM 4.6 mmol/L (3.5-5.1)
[2019-09-06 13:51] LABS: MAGNESIUM 1.5 mg/dL (1.8-2.4); TOTAL BILIRUBIN 0.4 mg/dL (<0.1-1.0); TOTAL PROTEIN 7.3 g/dL (6.4-8.2)
[2019-09-06 14:22] LABS: URINE BILIRUBIN NEGATIVE (Negative); URINE BLOOD NEGATIVE (Negative); URINE CLARITY CLEAR; URINE COLOR YELLOW; URINE GLUCOSE-RANDOM 1+ (Negative); URINE KETONES NEGATIVE (Negative); URINE LEUKOCYTES-REFLEX NEGATIVE (Negative); URINE NITRITE-REFLEX NEGATIVE (Negative); URINE PROTEIN NEGATIVE (Negative); URINE UROBILINOGEN 0.2 E.U./dl (0.2-1.0)
--- NOTE | 2019-09-06 15:19 | EKG ---
[place] [address] ELECTROCARDIOGRAM REPORT Name: ANDRY SCHUSTER III Room: [facility]#: [id number] Admission: 09/06/19 Attend Phys: Discharge: Date of : 47 Report #: [id number] THIS REPORT FOR: //name// [facility] ED Test Date: 2019-09-06 Test Time: 13:04:22 Pat Name: ANDRY SCHUSTER Department: Room: Gender: Senior Risk Analyst: : 1945 Requested By: Melba Harrison Order Number: [id number] MD: Ruiz Huang Measurements Intervals [place] Rate: 79 P: -37 RI: 124 QRS: -83 QRSD: 105 T: 64 QT: 390 QTc: 448 Interpretive Statements Sinus rhythm Incomplete RBBB and LAFB Abnormal R-wave progression, late transition Compared to ECG 07/20/2019 17:07:47 Incomplete right bundle-branch block now present Electronically Signed On 09-06-2019 15:18:49 DRAWER UPFITTER by Ruiz Huang [email or web address] <ELECTRONICALLY SIGNED> By: Ruiz Huang MD, [facility] 09/06/19 1518 1304 130 Ruiz Huang MD, FAC /EPI
[2019-09-06 16:42] VITALS: BP 122/60
== END 2019-09-06 16:43 | disposition short-term general hospital (02) ==
LOC: M.ERS 12:54
PROVIDERS: Personal Emergency Response Attendant
DX: I95.9 Hypotension, unspecified (principal); R06.03 Acute respiratory distress; E78.00 Pure hypercholesterolemia, unspecified; M19.90 Unspecified osteoarthritis, unspecified site; F17.210 Nicotine dependence, cigarettes, uncomplicated; Z95.5 Presence of coronary angioplasty implant and graft

== ENCOUNTER 2021-04-21 02:29 | Emergency (ER) | payer OTHER ==
[~2021-04-21] VITALS: Ht 177.8 cm; Wt 85.4 kg
[~2021-04-21 02:29] MED LIST changes: +PROZAC10 M1 PO
[2021-04-21] MEDS ORDERED: METFORMIN HCL500 M3 PO (02:38)
[2021-04-21 03:36] LABS: ABSOLUTE BASOPHILS 0.1 thou/uL (0.0-0.2); ABSOLUTE EOSINOPHILS 0.6 thou/uL (0.0-0.7); ABSOLUTE LYMPHOCYTES 1.9 thou/uL (0.8-5.3); ABSOLUTE MONOCYTES 0.7 thou/uL (0.0-1.2); ABSOLUTE NEUTROPHILS 5.5 thou/uL (1.6-8.1); BASOPHILS 1.1 %; EOSINOPHILS 6.3 %; HEMATOCRIT 39.8 % (42.0-52.0); HEMOGLOBIN 13.6 gm/dL (14.0-18.0); LYMPHOCYTES 22.1 %; MCH 31.2 pg (26.0-34.0); MCHC 34.1 g/dL (28.0-37.0); MCV 91.7 fL (80.0-100.0); MONOCYTES 8.5 %; MPV 7.8 fl. (7.2-11.1); NUCLEATED RBCS 0 /100WBC; PLATELET COUNT* 239 thou/uL (150-400); RBC 4.35 mil/uL (4.50-6.00); RDW-CV 13.7 % (10.5-14.5); WBC 8.8 thou/uL (4.0-11.0)
[2021-04-21 03:47] LABS: CALCIUM 8.7 mg/dL (8.5-10.1); CREATININE 0.9 mg/dL (0.6-1.3); POTASSIUM 4.1 mmol/L (3.5-5.1)
[2021-04-21 03:51] LABS: ALBUMIN 3.8 g/dL (3.4-5.0); MAGNESIUM 1.5 mg/dL (1.8-2.4); TOTAL BILIRUBIN 0.5 mg/dL (<0.1-1.0); TOTAL PROTEIN 7.2 g/dL (6.4-8.2)
[2021-04-21] MEDS ORDERED: BACTRIM DS TAB1 EACH PO (05:15)
[2021-04-21] MEDS ORDERED: CEPHALEXIN 250250 M1 PO (05:15)
[2021-04-21 06:02] VITALS: BP 137/76
== END 2021-04-21 06:03 | disposition home or self-care (01) ==
LOC: M.ERS 02:29
PROVIDERS: Emergency Medicine
DX: L97.911 Non-pressure chronic ulcer of unspecified part of right lower leg limited to breakdown of skin (principal); L97.921 Non-pressure chronic ulcer of unspecified part of left lower leg limited to breakdown of skin; F17.210 Nicotine dependence, cigarettes, uncomplicated; E78.00 Pure hypercholesterolemia, unspecified; M19.90 Unspecified osteoarthritis, unspecified site; Z79.899 Other long term (current) drug therapy; Z95.5 Presence of coronary angioplasty implant and graft

== ENCOUNTER 2021-08-01 09:35 | Inpatient (IN) | payer OTHER ==
[~2021-08-01] VITALS: Ht 172.7 cm; Wt 81.7 kg
[~2021-08-01 09:35] MED LIST changes: +BACTRIM DS TAB1 EACH PO; +CEPHALEXIN 250250 M1 PO; +METFORMIN HCL500 M3 PO
[2021-08-01 10:16] VITALS: BP 156/87
[2021-08-01] MEDS ORDERED: LANTUS SUBQ (11:46)
[2021-08-01 11:58] LABS: ABSOLUTE BASOPHILS 0.1 thou/uL (0.0-0.2); ABSOLUTE EOSINOPHILS 0.6 thou/uL (0.0-0.7); ABSOLUTE LYMPHOCYTES 1.3 thou/uL (0.8-5.3); ABSOLUTE NEUTROPHILS 9.8 thou/uL (1.6-8.1); BASOPHILS 0.8 %; EOSINOPHILS 4.4 %; HEMATOCRIT 39.9 % (42.0-52.0); HEMOGLOBIN 13.4 gm/dL (14.0-18.0); LYMPHOCYTES 10.1 %; MCH 30.6 pg (26.0-34.0); MCHC 33.4 g/dL (28.0-37.0); MCV 91.4 fL (80.0-100.0); MONOCYTES 7.6 %; MPV 7.2 fl. (7.2-11.1); NUCLEATED RBCS 0 /100WBC; PLATELET COUNT* 421 thou/uL (150-400); POLYS 77.1 %; RBC 4.37 mil/uL (4.50-6.00); RDW-CV 14.5 % (10.5-14.5); WBC 12.7 thou/uL (4.0-11.0)
[2021-08-01 12:25] LABS: CALCIUM 8.8 mg/dL (8.5-10.1); CREATININE 1.2 mg/dL (0.6-1.3); POTASSIUM 4.8 mmol/L (3.5-5.1)
[2021-08-01 12:30] LABS: ALBUMIN 3.1 g/dL (3.4-5.0); TOTAL BILIRUBIN 0.8 mg/dL (<0.1-1.0); TOTAL PROTEIN 6.3 g/dL (6.4-8.2)
[2021-08-01] MEDS ORDERED: DULOXETINE HCL30 MG PO (14:02)
[2021-08-01] MEDS ORDERED: PLAVIX 75 MG TA75 MG PO (14:05)
[2021-08-01] MEDS ORDERED: FLOMAX0.4 MG PO (14:06)
[2021-08-01] MEDS ORDERED: ASA81BEC PO (14:06)
[2021-08-01 14:07] LABS: URINE BILIRUBIN NEGATIVE (Negative); URINE BLOOD NEGATIVE (Negative); URINE CLARITY CLEAR; URINE COLOR YELLOW; URINE GLUCOSE-RANDOM 3+ (Negative); URINE KETONES NEGATIVE (Negative); URINE LEUKOCYTES-REFLEX NEGATIVE (Negative); URINE NITRITE-REFLEX NEGATIVE (Negative); URINE PROTEIN NEGATIVE (Negative); URINE SPECIFIC GRAVITY 1.015 (1.005-1.030); URINE UROBILINOGEN 0.2 E.U./dl (0.2-1.0)
[2021-08-01] MEDS ORDERED: VARENICLINE TART1 MG PO (14:07)
[2021-08-01] MEDS ORDERED: BETASEPT 4% SU120 M1 TOP (14:08)
[2021-08-01] MEDS ORDERED: ACETAMINOPHEN500 M1 PO (14:09)
[2021-08-01] MEDS ORDERED: SARNA ANTI-ITC222 ML TOP (14:11)
[2021-08-01] MEDS ORDERED: TRIAMCINOLONE430 GM TOP (14:11)
[2021-08-01] MEDS ORDERED: WOUND CLEANSER TOP (14:12)
[2021-08-01] MEDS ORDERED: ALEVE220 MG PO (14:13)
[2021-08-01] MEDS ORDERED: ONE DAILY MUL400 MCG PO (14:13)
[2021-08-01] MEDS ORDERED: SANTYL OINTMENT30 G1 TOP (14:14)
[2021-08-01] MEDS ORDERED: [UNRECOGNIZED DRUG - OTHER] TOP (14:15)
[2021-08-01] MEDS ORDERED: BENADRYL25 MG PO (14:16)
[2021-08-01 16:15] VITALS: BP 163/80
[2021-08-01 20:09] VITALS: BP 159/90
[2021-08-02 00:46] VITALS: BP 165/89
[2021-08-02 04:51] VITALS: BP 181/101
[2021-08-02 08:30] VITALS: BP 178/101
[2021-08-02 08:37] VITALS: BP 180/88
[2021-08-02 09:02] VITALS: BP 180/88
--- NOTE | 2021-08-02 14:38 | NUR ---
PATIENT ARRIVED TO UNIT AROUND 0830 AM. PATIENT WANTED PAIN MEDICATION AND IT WAS NOTED THAT IV WAS OUT. 2 NURSES ATTEMPTED TO TRY AND START IV 3 TIMES AND UNSUCCESSFUL. IV NURSE CALLED TO START IV. PATIENT UPSET ABOUT HOW LONG IT WAS TAKING TO GET IV PAIN MEDICATION. IV NURSE HERE AND STARTED IV. IV PAIN MEDICATION GIVEN AND IV ANTIBIODIC GIVEN. PATIENT HAD BOX WITH ALL HIS MEDICATIONS IN IT. HE WAS ASKED IF HE COULD HAVE SOMEONE COME UP AND TAKE THOSE HOME SINCE WE WOULD BE PROVIDING ALL THE MEDICATIONS ORDERED BY DR. PATIENT STATED THAT WE WERE NOT GOING TO TOUCH HIS BOX AND IF HE WANTED SOMETHING OUT OF HIS BOX HE WOULD TAKE IT. PATIENT ALSO UPSET ABOUT NOT BEING ABLE TO HAVE A CIGARETTE. I TOLD HIM I WOULD TRY AND GET HIM A PATCH. PATIENT STATED IV PAIN MEDICATION WAS HELPING A LITTLE BUT HE WANTED A LOTION OR OINTMENT TO PUT ON HIS LEGS TO HELP WITH PAIN. I SAID I WOULD HAVE TO CALL DR TO GET AN OINTMENT OR CREAM FOR LEGS. PATIENT UPSET THAT WE COULD NOT JUST PUT LOTION OR OINTMENT ON HIS LEGS WITHOUT CALLING DR TO GET AN ORDER. CALL PLACED TO DR VIA YOU CALL MD. PATIENT GETTING UPSET NOT HAVING OINTMENT FOR LEGS NOW. NURSING SALES ASSOCIATE FISHING WASCALLED ABOUT PATIENT BEING UPSET. SHE SAID HER AND DR BOYLE WERE IN A CODE BUT THAT SHE WOULD GIVE DR THE MESSAGE. PATIENT PULLED IV TUBING APART AND WALKED UP TO DESK AND SAID HE WAS LEAVING. PATIENT REFUSING TO PUT MASK ON AND SAID WE COULD NOT MAKE HIM. PATIENT RAISING VOICE AND UPSET. SECURITY WAS CALLED.PATIENT TAKEN BACK TO ROOM AND IV REMOVED. AMA FORM SIGNED. PATIENT STILL REFUSING TO WEAR MASK. SECURITY AND ARNIE HERE TO TALK WITH PATEINT. PATIENT LEFT WITH SECURITY AND ARNIE. HE HAD CALLED A CAB TO COME GET HIM. ARNIE LATER SAID SHE TAKED WITH PATIENTS EMERGENCY YARN HANDLER HIS BROTHER. SHE LET HIM KNOW ABOUT WHAT HAD HAPPEN. HE WAS NOTIFIED THAT 1 BOTTLE OF PATIENT'S PILLS WERE STILL HERE AND THE BROTHER SAID HE WOULD BE UP LATER TO PICK THEM UP FROM SECURITY.
[2021-08-03 02:06] LABS: GLYCOHEMOGLOBIN (HGB A1C) 7.9 % (4.8-5.6)
== END 2021-08-02 12:00 | disposition left against medical advice (07) | DRG 603 ==
LOC: M.ERS 09:35 → M.TBA-ER 12:15 → M.3W 12:15
PROVIDERS: Emergency Medicine Emergency Medical Services; ADMIT Internal Medicine; ATTEND Internal Medicine
DX: L03.116 Cellulitis of left lower limb (principal); R65.10 Systemic inflammatory response syndrome (SIRS) of non-infectious origin without acute organ dysfunction; E44.1 Mild protein-calorie malnutrition; L97.929 Non-pressure chronic ulcer of unspecified part of left lower leg with unspecified severity; L97.919 Non-pressure chronic ulcer of unspecified part of right lower leg with unspecified severity; E11.52 Type 2 diabetes mellitus with diabetic peripheral angiopathy with gangrene; I96 Gangrene, not elsewhere classified; E11.622 Type 2 diabetes mellitus with other skin ulcer; L03.115 Cellulitis of right lower limb; M19.90 Unspecified osteoarthritis, unspecified site; E78.00 Pure hypercholesterolemia, unspecified; E11.40 Type 2 diabetes mellitus with diabetic neuropathy, unspecified; I10 Essential (primary) hypertension; E78.5 Hyperlipidemia, unspecified; I87.2 Venous insufficiency (chronic) (peripheral); F17.210 Nicotine dependence, cigarettes, uncomplicated; M54.30 Sciatica, unspecified side; M48.00 Spinal stenosis, site unspecified; Z53.29 Procedure and treatment not carried out because of patient's decision for other reasons; Z95.5 Presence of coronary angioplasty implant and graft; Z79.899 Other long term (current) drug therapy; Z68.27 Body mass index [BMI] 27.0-27.9, adult

== ENCOUNTER 2021-08-10 15:22 | Inpatient (IN) | payer OTHER ==
[~2021-08-10] VITALS: Ht 175.3 cm; Wt 81.7 kg
[~2021-08-10 15:22] MED LIST changes: +ACETAMINOPHEN500 M1 PO; +ALEVE220 MG PO; +ASA81BEC PO; +BENADRYL25 MG PO; +BETASEPT 4% SU120 M1 TOP; +DULOXETINE HCL30 MG PO; +LANTUS SUBQ; +ONE DAILY MUL400 MCG PO; +PLAVIX 75 MG TA75 MG PO; +SANTYL OINTMENT30 G1 TOP; +SARNA ANTI-ITC222 ML TOP; +TRIAMCINOLONE430 GM TOP; +VARENICLINE TART1 MG PO; +WOUND CLEANSER TOP; +[UNRECOGNIZED DRUG - OTHER] TOP
[2021-08-10 15:30] VITALS: BP 126/54
[2021-08-10] MEDS ORDERED: MAGNESIUM400 MG PO (15:33)
[2021-08-10] MEDS ORDERED: ASPERCREME1 EACH TOP (15:35)
[2021-08-10 16:21] LABS: ABSOLUTE EOSINOPHILS 0.1 thou/uL (0.0-0.7); ABSOLUTE LYMPHOCYTES 1.1 thou/uL (0.8-5.3); ABSOLUTE MONOCYTES 0.8 thou/uL (0.0-1.2); BASOPHILS 0.7 %; LYMPHOCYTES 17.7 %; MCHC 33.2 g/dL (28.0-37.0); MCV 90.4 fL (80.0-100.0); MPV 7.1 fl. (7.2-11.1); NUCLEATED RBCS 0 /100WBC; PLATELET COUNT* 238 thou/uL (150-400); POLYS 66.6 %; RBC 3.98 mil/uL (4.50-6.00); RDW-CV 14.4 % (10.5-14.5)
--- NOTE | 2021-08-10 16:21 | EKG ---
[place] [address] ELECTROCARDIOGRAM REPORT Name: ANDRY SCHUSTER III Room: [facility]#: [id number] Admission: 08/10/21 Attend Phys: Discharge: Date of : 47 Date of Service: 08/10/21 1608 Report #: [id number] THIS REPORT FOR: //name// [facility] ED Test Date: 2021-08-10 Test Time: 16:08:58 Pat Name: ANDRY SCHUSTER Department: Room: Gender: [employer] Operator: [facility] : 1945 Requested By: Tosha Cole Order Number: [id number] MD: Gume Alvarado Measurements Intervals [place] Rate: 66 P: -25 [place]: 131 QRS: -85 QRSD: 124 T: 30 QT: 399 QTc: 418 Interpretive Statements Sinus rhythm RBBB and LAFB Compared to ECG 09/06/2019 13:04:22 no change Electronically Signed On 08-10-2021 16:21:38 [employer] by Gume Alvarado [email or web address] <ELECTRONICALLY SIGNED> By: Gume Alvarado MD, [facility] 08/10/21 1621 1608 1608 Gume Alvarado MD, [facility] /EPI
[2021-08-10 16:29] LABS: CALCIUM 8.4 mg/dL (8.5-10.1); CREATININE 1.4 mg/dL (0.6-1.3); POTASSIUM 4.8 mmol/L (3.5-5.1)
[2021-08-10 16:33] LABS: TOTAL BILIRUBIN 0.2 mg/dL (<0.1-1.0); TOTAL PROTEIN 6.5 g/dL (6.4-8.2)
[2021-08-10 16:41] LABS: PROTIME 10.5 Seconds (9.20-11.50)
[2021-08-10 19:37] VITALS: BP 129/55
[2021-08-10 21:53] LABS: AMP/METHAMP Negative (Negative); BARBITURATES Negative (Negative); BENZODIAZEPINES Negative (Negative); COCAINE Negative (Negative); METHADONE Negative (Negative); OPIATES Negative (Negative); PCP Negative (Negative); THC POSITIVE (Negative)
[2021-08-10 23:30] VITALS: BP 160/90
[2021-08-11 03:30] VITALS: BP 161/64
[2021-08-11 03:37] LABS: ABSOLUTE BASOPHILS 0.1 thou/uL (0.0-0.2); ABSOLUTE EOSINOPHILS 0.1 thou/uL (0.0-0.7); ABSOLUTE LYMPHOCYTES 1.1 thou/uL (0.8-5.3); ABSOLUTE MONOCYTES 0.8 thou/uL (0.0-1.2); ABSOLUTE NEUTROPHILS 2.7 thou/uL (1.6-8.1); BASOPHILS 1.1 %; EOSINOPHILS 2.5 %; HEMATOCRIT 33.2 % (42.0-52.0); LYMPHOCYTES 22.7 %; MCH 30.1 pg (26.0-34.0); MCHC 33.2 g/dL (28.0-37.0); MCV 90.7 fL (80.0-100.0); MPV 6.7 fl. (7.2-11.1); NUCLEATED RBCS 0 /100WBC; PLATELET COUNT* 198 thou/uL (150-400); POLYS 56.7 %; RBC 3.66 mil/uL (4.50-6.00); RDW-CV 14.2 % (10.5-14.5); WBC 4.8 thou/uL (4.0-11.0)
[2021-08-11 03:57] LABS: CALCIUM 7.7 mg/dL (8.5-10.1); CREATININE 1.3 mg/dL (0.6-1.3); POTASSIUM 4.4 mmol/L (3.5-5.1)
[2021-08-11 07:34] VITALS: BP 193/85
[2021-08-11 12:50] VITALS: BP 156/86
[2021-08-11 16:50] VITALS: BP 156/86
[2021-08-11 17:42] VITALS: BP 114/57
[2021-08-12 00:46] VITALS: BP 130/67
[2021-08-12 04:00] VITALS: BP 125/61
[2021-08-12 04:18] LABS: ALBUMIN 2.5 g/dL (3.4-5.0); CALCIUM 8.2 mg/dL (8.5-10.1); CREATININE 0.8 mg/dL (0.6-1.3); POTASSIUM 4.2 mmol/L (3.5-5.1); TOTAL BILIRUBIN 0.2 mg/dL (<0.1-1.0); TOTAL PROTEIN 5.7 g/dL (6.4-8.2)
[2021-08-12 04:28] LABS: ABSOLUTE EOSINOPHILS 0.1 thou/uL (0.0-0.7); ABSOLUTE LYMPHOCYTES 0.9 thou/uL (0.8-5.3); ABSOLUTE MONOCYTES 0.4 thou/uL (0.0-1.2); ABSOLUTE NEUTROPHILS 2.5 thou/uL (1.6-8.1); BASOPHILS 0.8 %; EOSINOPHILS 3.2 %; HEMATOCRIT 31.9 % (42.0-52.0); HEMOGLOBIN 10.5 gm/dL (14.0-18.0); MCH 30.1 pg (26.0-34.0); MCHC 32.8 g/dL (28.0-37.0); MCV 91.6 fL (80.0-100.0); MPV 6.9 fl. (7.2-11.1); NUCLEATED RBCS 0 /100WBC; PLATELET COUNT* 177 thou/uL (150-400); RBC 3.48 mil/uL (4.50-6.00); RDW-CV 14.1 % (10.5-14.5)
[2021-08-12 08:00] VITALS: BP 151/64
[2021-08-12 12:32] VITALS: BP 120/63
[2021-08-12 16:09] VITALS: BP 150/76
[2021-08-12 20:14] VITALS: BP 164/55
[2021-08-13 00:38] VITALS: BP 131/61
[2021-08-13 04:05] LABS: ABSOLUTE EOSINOPHILS 0.1 thou/uL (0.0-0.7); ABSOLUTE LYMPHOCYTES 0.8 thou/uL (0.8-5.3); ABSOLUTE MONOCYTES 0.5 thou/uL (0.0-1.2); ABSOLUTE NEUTROPHILS 2.8 thou/uL (1.6-8.1); BASOPHILS 0.5 %; EOSINOPHILS 1.4 %; HEMATOCRIT 31.4 % (42.0-52.0); HEMOGLOBIN 10.4 gm/dL (14.0-18.0); LYMPHOCYTES 18.9 %; MCH 30.4 pg (26.0-34.0); MCHC 33.2 g/dL (28.0-37.0); MCV 91.6 fL (80.0-100.0); MONOCYTES 12.5 %; MPV 6.9 fl. (7.2-11.1); NUCLEATED RBCS 0 /100WBC; PLATELET COUNT* 178 thou/uL (150-400); POLYS 66.7 %; RBC 3.43 mil/uL (4.50-6.00); RDW-CV 14.2 % (10.5-14.5); WBC 4.2 thou/uL (4.0-11.0)
[2021-08-13 04:19] LABS: ALBUMIN 2.5 g/dL (3.4-5.0); CALCIUM 8.1 mg/dL (8.5-10.1); CREATININE 0.8 mg/dL (0.6-1.3); POTASSIUM 4.2 mmol/L (3.5-5.1); TOTAL BILIRUBIN 0.3 mg/dL (<0.1-1.0); TOTAL PROTEIN 5.7 g/dL (6.4-8.2)
[2021-08-13 04:46] VITALS: BP 113/52
[2021-08-13 08:03] VITALS: BP 168/81
[2021-08-13 11:30] VITALS: BP 155/81
[2021-08-13 16:00] VITALS: BP 163/59
== END 2021-08-13 20:02 | disposition short-term general hospital (02) | DRG 602 ==
LOC: M.ERS 15:22 → M.TBA-ER 16:48 → M.ERS 16:48 → M.TBA-ER 18:15 → M.ORTHSURG 08-11 17:10
PROVIDERS: Nurse Practitioner Family; ADMIT Internal Medicine; ATTEND Internal Medicine
DX: L03.116 Cellulitis of left lower limb (principal); U07.1 COVID-19; N17.9 Acute kidney failure, unspecified; E11.628 Type 2 diabetes mellitus with other skin complications; L03.115 Cellulitis of right lower limb; E11.51 Type 2 diabetes mellitus with diabetic peripheral angiopathy without gangrene; F17.210 Nicotine dependence, cigarettes, uncomplicated; Z71.6 Tobacco abuse counseling; Z79.4 Long term (current) use of insulin; Z95.5 Presence of coronary angioplasty implant and graft; N18.9 Chronic kidney disease, unspecified; E11.22 Type 2 diabetes mellitus with diabetic chronic kidney disease; I12.9 Hypertensive chronic kidney disease with stage 1 through stage 4 chronic kidney disease, or unspecified chronic kidney disease

== ENCOUNTER 2021-09-19 09:28 | Emergency (ER) | payer OTHER, MEDICARE ==
[~2021-09-19] VITALS: Ht 177.8 cm; Wt 77.1 kg
[~2021-09-19 09:28] MED LIST changes: +ASPERCREME1 EACH TOP; +MAGNESIUM400 MG PO
[2021-09-19] MEDS ORDERED: DOXYCYCLINE 10100 MG PO (11:45)
[2021-09-19] MEDS ORDERED: NORCO5 PO ×2 (11:45→11:55)
[2021-09-19 12:07] VITALS: BP 133/60
== END 2021-09-19 12:08 | disposition left against medical advice (07) ==
LOC: M.ERS 09:28
DX: L97.909 Non-pressure chronic ulcer of unspecified part of unspecified lower leg with unspecified severity (principal); I10 Essential (primary) hypertension; E78.00 Pure hypercholesterolemia, unspecified; M19.90 Unspecified osteoarthritis, unspecified site; E11.9 Type 2 diabetes mellitus without complications; F17.210 Nicotine dependence, cigarettes, uncomplicated; Z95.5 Presence of coronary angioplasty implant and graft; Z79.899 Other long term (current) drug therapy; Z79.4 Long term (current) use of insulin; Z79.82 Long term (current) use of aspirin

== ENCOUNTER 2021-10-15 13:05 | Emergency (ER) | payer OTHER ==
[~2021-10-15] VITALS: Ht 177.8 cm; Wt 79.8 kg
[~2021-10-15 13:05] MED LIST changes: +DOXYCYCLINE 10100 MG PO; +NORCO5 PO
[2021-10-15] MEDS ORDERED: DOXYCYCLINE 10100 MG PO (14:47)
[2021-10-15] MEDS ORDERED: APAP W/CODEINE1 TA2 PO (14:47)
[2021-10-15 15:05] VITALS: BP 155/69
== END 2021-10-15 15:07 | disposition home or self-care (01) ==
LOC: M.ERS 13:05
DX: L03.116 Cellulitis of left lower limb (principal); L03.115 Cellulitis of right lower limb; E78.00 Pure hypercholesterolemia, unspecified; M19.90 Unspecified osteoarthritis, unspecified site; E11.9 Type 2 diabetes mellitus without complications; I10 Essential (primary) hypertension; F17.210 Nicotine dependence, cigarettes, uncomplicated; Z79.4 Long term (current) use of insulin; Z79.82 Long term (current) use of aspirin; Z79.891 Long term (current) use of opiate analgesic; Z79.899 Other long term (current) drug therapy

== ENCOUNTER 2021-10-25 14:13 | Inpatient (IN) | payer OTHER, MEDICARE ==
[~2021-10-25] VITALS: Ht 177.8 cm; Wt 75.4 kg
[~2021-10-25 14:13] MED LIST changes: +APAP W/CODEINE1 TA2 PO; -LISINOPRIL40 MG; +ZESTRIL40 MG PO
[2021-10-25 14:28] VITALS: BP 175/86
[2021-10-25 15:36] LABS: ABSOLUTE BASOPHILS 0.1 thou/uL (0.0-0.2); ABSOLUTE EOSINOPHILS 0.4 thou/uL (0.0-0.7); ABSOLUTE LYMPHOCYTES 1.4 thou/uL (0.8-5.3); ABSOLUTE MONOCYTES 0.6 thou/uL (0.0-1.2); ABSOLUTE NEUTROPHILS 7.4 thou/uL (1.6-8.1); BASOPHILS 1.5 %; HEMATOCRIT 34.4 % (42.0-52.0); HEMOGLOBIN 11.3 gm/dL (14.0-18.0); LYMPHOCYTES 13.9 %; MCH 28.6 pg (26.0-34.0); MCHC 32.8 g/dL (28.0-37.0); MCV 87.3 fL (80.0-100.0); MPV 6.5 fl. (7.2-11.1); NUCLEATED RBCS 0 /100WBC; PLATELET COUNT* 317 thou/uL (150-400); POLYS 74.6 %; RBC 3.94 mil/uL (4.50-6.00); RDW-CV 15.6 % (10.5-14.5); WBC 9.9 thou/uL (4.0-11.0)
[2021-10-25 15:46] LABS: CALCIUM 8.2 mg/dL (8.5-10.1); CREATININE 1.1 mg/dL (0.6-1.3); POTASSIUM 5.4 mmol/L (3.5-5.1)
[2021-10-25 15:50] LABS: ALBUMIN 2.5 g/dL (3.4-5.0); TOTAL BILIRUBIN 0.3 mg/dL (<0.1-1.0); TOTAL PROTEIN 5.9 g/dL (6.4-8.2)
[2021-10-25 20:06] VITALS: BP 131/58
[2021-10-26] VITALS (7 sets, daily range): BP systolic 108–177; BP diastolic 66–81
[2021-10-27 05:34] LABS: ABSOLUTE BASOPHILS 0.1 thou/uL (0.0-0.2); ABSOLUTE EOSINOPHILS 0.3 thou/uL (0.0-0.7); ABSOLUTE LYMPHOCYTES 1.5 thou/uL (0.8-5.3); ABSOLUTE MONOCYTES 0.6 thou/uL (0.0-1.2); ABSOLUTE NEUTROPHILS 5.4 thou/uL (1.6-8.1); BASOPHILS 0.8 %; EOSINOPHILS 3.5 %; HEMATOCRIT 34.7 % (42.0-52.0); HEMOGLOBIN 11.5 gm/dL (14.0-18.0); LYMPHOCYTES 18.7 %; MCH 28.9 pg (26.0-34.0); MCHC 33.1 g/dL (28.0-37.0); MCV 87.2 fL (80.0-100.0); MPV 6.9 fl. (7.2-11.1); NUCLEATED RBCS 0 /100WBC; PLATELET COUNT* 299 thou/uL (150-400); RBC 3.98 mil/uL (4.50-6.00); RDW-CV 15.6 % (10.5-14.5); WBC 7.8 thou/uL (4.0-11.0)
[2021-10-27 05:51] LABS: CALCIUM 8.4 mg/dL (8.5-10.1); CREATININE 0.8 mg/dL (0.6-1.3); POTASSIUM 3.8 mmol/L (3.5-5.1)
[2021-10-27 08:00] VITALS: BP 134/88
[2021-10-27 16:00] VITALS: BP 174/48
[2021-10-27 20:00] VITALS: BP 166/77
[2021-10-28] VITALS: BP 130/71
[2021-10-28 08:23] VITALS: BP 132/67
== END 2021-10-28 14:00 | disposition left against medical advice (07) | DRG 603 ==
LOC: M.ERS 14:13 → M.TBA-ER 16:06 → M.2W 16:06
PROVIDERS: Internal Medicine; Physician Assistant; ADMIT Internal Medicine; ATTEND Internal Medicine
DX: L03.116 Cellulitis of left lower limb (principal); E44.0 Moderate protein-calorie malnutrition; L97.929 Non-pressure chronic ulcer of unspecified part of left lower leg with unspecified severity; L97.919 Non-pressure chronic ulcer of unspecified part of right lower leg with unspecified severity; L03.115 Cellulitis of right lower limb; Z20.822 Contact with and (suspected) exposure to COVID-19; E78.00 Pure hypercholesterolemia, unspecified; M19.90 Unspecified osteoarthritis, unspecified site; F12.90 Cannabis use, unspecified, uncomplicated; S81.802A Unspecified open wound, left lower leg, initial encounter; S81.801A Unspecified open wound, right lower leg, initial encounter; F17.210 Nicotine dependence, cigarettes, uncomplicated; E11.51 Type 2 diabetes mellitus with diabetic peripheral angiopathy without gangrene; Z53.29 Procedure and treatment not carried out because of patient's decision for other reasons; Z95.5 Presence of coronary angioplasty implant and graft; Z91.19 Patient's noncompliance with other medical treatment and regimen; Z79.82 Long term (current) use of aspirin; Z79.899 Other long term (current) drug therapy; Z68.23 Body mass index [BMI] 23.0-23.9, adult; X58.XXXA Exposure to other specified factors, initial encounter; Y93.89 Activity, other specified; Y92.89 Other specified places as the place of occurrence of the external cause; Y99.8 Other external cause status